=== PATIENT | female | born 2000 | race Caucasian/White ===

== ENCOUNTER 2024-08-06 10:50 | Emergency (ER) | payer BC, SELFPAY ==
--- NOTE | ~2024-08-06 | US_ITS ---
EXAMINATION: US pelvic complete w TV DATE: 08/06/2024 14:19 INDICATION: Pelvic pain and fever TECHNIQUE: Multiple transabdominal and endovaginal sonographic images of the pelvis were obtained. COMPARISON: None. FINDINGS: The uterus measures 7.2 x 4.4 x 3.2 cm. The endometrial complex measures 6 mm in thickness. The righ t ovary measures 2.4 x 1.6 x 1.8 cm. The left ovary measures 3.1 x 1.9 x 1.9 The anechoic cysts/follicles at both ovaries measuring up to 1.6 cm maximal diameter on the left and 1.1 cm in maximal diameter on the right. cm. After flow identified in both ovaries on color Doppler. There is a small amount of anechoic, likely physiologic free fluid in the pelvis. IMPRESSION: 1. Unremarkable pelvic ultrasound with small amount of anechoic likely physiologic free fluid in the cul-de-sac. Reviewed, dictated and finalized at location B. UCTION ARTIST IMPRESSION: 1. Unremarkable pelvic ultrasound with small amount of anechoic likely physiolo gic free fluid in the cul-de-sac.
[2024-08-06 11:12] VITALS: BP 110/70; PULSE 72; RESP 16; TEMP 36.4; O2SAT 98
--- NOTE | 2024-08-06 13:05 | ED.ABDPAIN ---
HPI - Abdominal Pain General Chief Complaint: Abdominal Pain <Zuleika Sánchez PA-C - Last Filed: 08/07/24 15:08> Stated Complaint: i think a cyst on my ovary burst <Zuleika Sánchez PA-C - Last Filed: 08/07/24 15:08> Time Seen by Provider: 08/06/24 13:05 <Zuleika Sánchez PA-C - Last Filed: 08/07/24 15:08> Focused HPI: This is a 24 year old female that presents to the ER for lower abdominal pain. Ongoing since yesterday. Reports feels like really bad period cramp. She has had a ruptured ovarian cyst in the past. Pain feels similar. GENERAL: Well-appearing, well-nourished, and in no acute distress. HEAD: Normocephalic, atraumatic. CHEST: Clear to auscultation. ?No respiratory distress. HEART: Regular rate and rhythm.? NEURO: ?Alert and oriented x3. Patient screened in triage and initial orders placed.? ?Additional care and disposition to be based upon?diagnostic testing and treatment. <Zuleika Sánchez PA-C - Last Filed: 08/07/24 15:08> History of Present Illness HPI narrative: I agree with the above HPI <Aristeo Silva MD - Last Filed: 08/06/24 22:45> Related Data Allergies/Adverse Reactions: Allergies Allergy/AdvReac Type Severity Reaction Status Date / Time No Known Allergies Allergy Verified 08/06/24 10:52 <Zuleika Sánchez PA-C - Last Filed: 08/07/24 15:08> Review of Systems Review of Systems: All systems reviewed & are unremarkable except as noted in HPI and below <Aristeo Silva MD - Last Filed: 08/06/24 22:45> PMFSH Past Medical History Medical History: Medical History (Updated 08/07/24 @ 15:08 by Zuleika Sánchez PA-C) History of migraine <Zuleika Sánchez PA-C - Last Filed: 08/07/24 15:08> Social History Social History: Social History (Updated 08/07/24 @ 15:08 by Zuleika Sánchez PA-C) Substance use: never <Zuleika Sánchez PA-C - Last Filed: 08/07/24 15:08> Exam Narrative: APPEARANCE: Well appearing, no pain, no distress, well-nourished. HEAD: normocephalic, atraumatic. EYES: PERRLA/EOMI, conjunctivae clear. NOSE: Normal no drainage EARS:TMS clear with good light reflex. THROAT: Pharynx clear, no exudate. NECK: Supple. No adenopathy, no masses. RESPIRATORY: Airway patent, respirations nonlabored. Clear to auscultation bilaterally, no rales, rhonchi, wheezing. CARDIOVASCULAR: Regular rate and rhythm without murmurs rubs or gallops. ABDOMINAL: Soft, nonsurgical abdomen with mild tenderness to suprapubic region MUSCULOSKELETAL: Moves all extremities. Strength/ROM intact, No edema, No calf tenderness. NEURO: Alert. Cranial nerves II through XII intact. Good gait. Good coordination SKIN: Warm, dry. Normal Color <Aristeo Silva MD - Last Filed: 08/06/24 22:45> Course Vital Signs Vital signs: Vital Signs Temperature 97.6 F 08/06/24 11:12 Pulse Rate 72 08/06/24 11:12 Respiratory Rate 16 08/06/24 11:12 Blood Pressure 110/70 08/06/24 11:12 Pulse Oximetry 98 08/06/24 11:12 Oxygen Delivery Room Air 08/06/24 11:12 Temperature 97.6 F 08/06/24 11:12 Pulse Rate 72 08/06/24 11:12 Respiratory Rate 16 08/06/24 11:12 Blood Pressure 110/70 08/06/24 11:12 Pulse Oximetry 98 08/06/24 11:12 Oxygen Delivery Room Air 08/06/24 11:12 <Zuleika Sánchez PA-C - Last Filed: 08/07/24 15:08> Vital Signs Temperature 97.6 F 08/06/24 11:12 Pulse Rate 72 08/06/24 11:12 Respiratory Rate 16 08/06/24 11:12 Blood Pressure 110/70 08/06/24 11:12 Pulse Oximetry 98 08/06/24 11:12 Oxygen Delivery Room Air 08/06/24 11:12 Temperature 97.6 F 08/06/24 11:12 Pulse Rate 72 08/06/24 11:12 Respiratory Rate 16 08/06/24 11:12 Blood Pressure 110/70 08/06/24 11:12 Pulse Oximetry 98 08/06/24 11:12 Oxygen Delivery Room Air 08/06/24 11:12 <Aristeo Silva MD - Last Filed: 08/06/24 22:45> MDM - Abdominal Pain MDM Narrative Medical decision making narrative: 24-year-old female presenting to the emergency department for evaluation for lower abdominal pain. Patient reports the pain was very intense last night but has since improved. Patient was afebrile with no leukocytosis and hemoglobin of 13.4. Patient had no significant abnormalities on her CMP UA was negative for infection. test was negative. Ultrasound was negative for torsion. On evaluation patient states she does feel improved. Patient was advised to have close follow-up with her physician and educated on reasons to return to the emergency department. Patient was advised to take Tylenol ibuprofen for pain control. <Aristeo Silva MD - Last Filed: 08/06/24 22:45> Differential Diagnosis Differential diagnosis: Likely abdominal pain, acute appendicitis, calculus of kidney, constipation, diverticulitis, gastroenteritis, pancreatitis, small bowel obstruction and other <Aristeo Silva MD - Last Filed: 08/06/24 22:45> Lab Data Attestation: I reviewed the patient's lab results. <Aristeo Silva MD - Last Filed: 08/06/24 22:45> Result diagrams: 08/06/24 14:08 08/06/24 14:08 <Zuleika Sánchez PA-C - Last Filed: 08/07/24 15:08> Labs: Lab Results 08/06/24 08/06/24 Range/Units 13:16 14:08 WBC 8.0 (4.5-10.0) K/mm3 RBC 4.48 (4.2-5.4) M/mm3 Hgb 13.4 (12.0-15.0) g/dL Hct 42.1 (37.0-47.0) % MCV 94.0 (80-100) fl MCH 29.9 (26-34) pg MCHC 31.8 L (32-36) g/dl RDW 12.5 (11.5-14.5) % Plt Count 254 (150-375) k/mm3 MPV 11.0 H (7.4-10.4) fl Immature Gran % (Auto) 0.3 (0-0.5) % Neut % (Auto) 64.7 (45.5-73.1) % Lymph % (Auto) 25.0 (18.3-44.2) % [place] % (Auto) 8.7 H (2.6-8.5) % Eos % (Auto) 0.8 (0-4.4) % Baso % (Auto) 0.5 (0.2-1.2) % Lymph # (Auto) 1.99 (0.9-3.2) K/mm3 [place] # (Auto) 0.7 H (0.1-0.6) K/mm3 Eos # (Auto) 0.1 (0-0.3) K/mm3 Baso # (Auto) 0.0 (0.0-0.1) K/mm3 Abs Immat Gran (auto) 0.02 (0.00-0.031) K/mm3 Absolute Neuts (auto) 5.2 (1.3-6.7) K/mm3 Absolute Nucleated RBC 0.000 (0.0-0.012) K/mm3 Nucleated RBC % 0.0 (0.0-0.2) % Sodium 142 (137-145) mmol/L Potassium 3.7 (3.4-5.0) mmol/L Chloride 103 (98-107) mmol/L Carbon Dioxide 26 (22-30) mmol/L Anion Gap 13 H (4-12) mmol/L BUN 11 (7-17) mg/dL Creatinine 0.66 L (0.7-1.0) mg/dL Estim Creat Clear Calc 109 ml/min Estimated GFR > 60 (59 - ) Glucose 85 (65-110) mg/dL Calcium 9.0 (8.4-10.2) mg/dL Total Bilirubin 0.7 (0.2-1.3) mg/dL AST 19 (14-36) U/L ALT 12 (6-35) U/L Alkaline Phosphatase 89 (38-126) U/L Total Protein 8.0 (6.3-8.2) g/dL Albumin 4.2 (3.5-5.1) g/dL Lipase 41 (23-300) U/L Urine Color Yellow (Yellow) Urine Appearance Clear (Clear) Urine pH 5.5 (5.0-9.0) Ur Specific [place] 1.025 (1.001-1.035) Urine Protein Negative (Negative) mg/dL Urine Glucose (UA) Negative (Negative) mg/dL Urine Ketones Trace H (Negative) mg/dL Ur Blood (Man) 1+ H (Negative) Urine Nitrate Negative (Negative) Urine Bilirubin Negative (Negative) Urine Urobilinogen 0.2 (<2.0) mg/dL Leukocyte Esterase Rfl Negative (Negative) ABDULKADIR/UL Urine RBC 11-20 H (0-2) /hpf Urine WBC 0-5 (0-3) /hpf Ur Squamous Epith Cells None seen (Few) /hpf Urine Bacteria None seen /hpf Urine Casts 0-2 POC Urine HCG, Qual Negative (Negative) <Zuleika Sánchez PA-C - Last Filed: 08/07/24 15:08> Lab Results 08/06/24 08/06/24 Range/Units 13:16 14:08 WBC 8.0 (4.5-10.0) K/mm3 RBC 4.48 (4.2-5.4) M/mm3 Hgb 13.4 (12.0-15.0) g/dL Hct 42.1 (37.0-47.0) % MCV 94.0 (80-100) fl MCH 29.9 (26-34) pg MCHC 31.8 L (32-36) g/dl RDW 12.5 (11.5-14.5) % Plt Count 254 (150-375) k/mm3 MPV 11.0 H (7.4-10.4) fl Immature Gran % (Auto) 0.3 (0-0.5) % Neut % (Auto) 64.7 (45.5-73.1) % Lymph % (Auto) 25.0 (18.3-44.2) % [place] % (Auto) 8.7 H (2.6-8.5) % Eos % (Auto) 0.8 (0-4.4) % Baso % (Auto) 0.5 (0.2-1.2) % Lymph # (Auto) 1.99 (0.9-3.2) K/mm3 [place] # (Auto) 0.7 H (0.1-0.6) K/mm3 Eos # (Auto) 0.1 (0-0.3) K/mm3 Baso # (Auto) 0.0 (0.0-0.1) K/mm3 Abs Immat Gran (auto) 0.02 (0.00-0.031) K/mm3 Absolute Neuts (auto) 5.2 (1.3-6.7) K/mm3 Absolute Nucleated RBC 0.000 (0.0-0.012) K/mm3 Nucleated RBC % 0.0 (0.0-0.2) % Sodium 142 (137-145) mmol/L Potassium 3.7 (3.4-5.0) mmol/L Chloride 103 (98-107) mmol/L Carbon Dioxide 26 (22-30) mmol/L Anion Gap 13 H (4-12) mmol/L BUN 11 (7-17) mg/dL Creatinine 0.66 L (0.7-1.0) mg/dL Estim Creat Clear Calc 109 ml/min Estimated GFR > 60 (59 - ) Glucose 85 (65-110) mg/dL Calcium 9.0 (8.4-10.2) mg/dL Total Bilirubin 0.7 (0.2-1.3) mg/dL AST 19 (14-36) U/L ALT 12 (6-35) U/L Alkaline Phosphatase 89 (38-126) U/L Total Protein 8.0 (6.3-8.2) g/dL Albumin 4.2 (3.5-5.1) g/dL Lipase 41 (23-300) U/L Urine Color Yellow (Yellow) Urine Appearance Clear (Clear) Urine pH 5.5 (5.0-9.0) Ur Specific [place] 1.025 (1.001-1.035) Urine Protein Negative (Negative) mg/dL Urine Glucose (UA) Negative (Negative) mg/dL Urine Ketones Trace H (Negative) mg/dL Ur Blood (Man) 1+ H (Negative) Urine Nitrate Negative (Negative) Urine Bilirubin Negative (Negative) Urine Urobilinogen 0.2 (<2.0) mg/dL Leukocyte Esterase Rfl Negative (Negative) ABDULKADIR/UL Urine RBC 11-20 H (0-2) /hpf Urine WBC 0-5 (0-3) /hpf Ur Squamous Epith Cells None seen (Few) /hpf Urine Bacteria None seen /hpf Urine Casts 0-2 POC Urine HCG, Qual Negative (Negative) <Aristeo Silva MD - Last Filed: 08/06/24 22:45> Imaging Data Radiologist's impression: ITS Impressions Pelvic/Transvag US 08/06/24 14:50 IMPRESSION: 1. Unremarkable pelvic ultrasound with small amount of anechoic likely physiologic free fluid in the cul-de-sac. <Zuleika Sánchez PA-C - Last Filed: 08/07/24 15:08> ITS Impressions Pelvic/Transvag US 08/06/24 14:50 IMPRESSION: 1. Unremarkable pelvic ultrasound with small amount of anechoic likely physiologic free fluid in the cul-de-sac. <Aristeo Silva MD - Last Filed: 08/06/24 22:45> Critical Care Time Critical Care Time Critical Care Time: No <Zuleika Sánchez PA-C - Last Filed: 08/07/24 15:08> Discharge Plan Discharge Clinical Impression: Lower abdominal pain <Zuleika Sánchez PA-C - Last Filed: 08/07/24 15:08> Patient Disposition: Home, Self-Care <Zuleika Sánchez PA-C - Last Filed: 08/07/24 15:08> Condition: Stable <Zuleika Sánchez PA-C - Last Filed: 08/07/24 15:08> Instructions: Antibiotic Form, Ovarian Cyst (ED), Abdominal Pain (ED) <Zuleika Sánchez PA-C - Last Filed: 08/07/24 15:08> Additional Instructions: Tylenol and ibuprofen for pain control. Have close follow-up with your primary care physician and with [facility]. If you have any worsening symptoms then please call or return to the emergency department. <Zuleika Sánchez PA-C - Last Filed: 08/07/24 15:08> Patient Language: Romanian <Zuleika Sánchez PA-C - Last Filed: 08/07/24 15:08> Follow-up/Referrals: PHYSICIAN NOT ON STAFF,NONSTAFF [Non-Staff] - <Zuleika Sánchez PA-C - Last Filed: 08/07/24 15:08>
[2024-08-06 13:18] LABS: BEDSIDEPREGUCG Negative (Negative)
[2024-08-06 14:34] LABS: Basophils Percent Auto 0.5 % (0.2-1.2); Eosinophils Absolute Auto 0.1 K/mm3 (0-0.3); Eosinophils Percent Auto 0.8 % (0-4.4); Hematocrit 42.1 % (37.0-47.0); Hemoglobin 13.4 g/dL (12.0-15.0); Immature Granulocyte Absolute 0.02 K/mm3 (0.00-0.031); Immature Granulocyte Percent A 0.3 % (0-0.5); Lymphocytes Absolute Auto 1.99 K/mm3 (0.9-3.2); Mean Corpuscular HGB Conc 31.8 g/dl (32-36); Mean Corpuscular Hemoglobin 29.9 pg (26-34); Monocytes Absolute Auto 0.7 K/mm3 (0.1-0.6); Monocytes Percent Auto 8.7 % (2.6-8.5); Neutrophils Absolute Auto 5.2 K/mm3 (1.3-6.7); Neutrophils Percent Auto 64.7 % (45.5-73.1); Platelet Count Result 254 k/mm3 (150-375); Red Blood Count 4.48 M/mm3 (4.2-5.4); Red Cell Distribution Width 12.5 % (11.5-14.5)
[2024-08-06 14:40] LABS: Add Urine Microscopic? YES; Appearance Urine Clear (Clear); Bacteria Urine None Seen /hpf; Bilirubin Urine Negative (Negative); Blood Urine 1+ (Negative); Color Urine Yellow (Yellow); Glucose Urine UA Negative (Negative); Ketones Urine Trace mg/dL (Negative); Leukocyte Esterase Ur Negative LEU/UL (Negative); Nitrate Urine Negative (Negative); Non Pathogenic Casts 0-2; Protein Urine Negative (Negative); Specific Grav Ur 1.025 (1.001-1.035); Squamous Epithelial Cell Urine None Seen /hpf (Few); Urobilinogen Urine 0.2 mg/dL (<2.0); WBC Urine 0-5 /hpf (0-3); pH Urine 5.5 (5.0-9.0)
[2024-08-06 14:58] LABS: Alanine Aminotransferase 12 U/L (6-35); Albumin Level 4.2 g/dL (3.5-5.1); Alkaline Phosphatase 89 U/L (38-126); Anion Gap 13 mmol/L (4-12); Aspartate Amino Transferase 19 U/L (14-36); Bilirubin,Total 0.7 mg/dL (0.2-1.3); Blood Urea Nitrogen 11 mg/dL (7-17); Carbon Dioxide 26 mmol/L (22-30); Chloride 103 mmol/L (98-107); Estimated CRCL calculation 109 ml/min; Estimated Glomerular Filt Rate > 60; Glucose 85 mg/dL (65-110); Lipase 41 U/L (23-300); Potassium 3.7 mmol/L (3.4-5.0); Sodium 142 mmol/L (137-145)
--- OUTSIDE RECORDS SUMMARY | 2024-08-06 16:46 | XMS_ITS | Clinical Summary ---
Author Organization [facility] Address [address] [place] [address] Care Team Providers Care Insect Control Inspector Name Role Phone Mary London NP Primary Care Provider [phone] Allergies No known active allergies Medications topiramate (TOPAMAX) 25 mg tablet Take 1 tablet (25 mg total) by mouth nightly 30 tablet 1 5 Active rizatriptan (MAXALT) 10 mg tabletIndications:M igraine Take 1 tablet (10 mg total) by mouth once as needed for migraine May repeat in 2 hours if unresolved. Do not exceed 30 mg in 24 hours. 15 tablet 1 5 07/22/19 26 Active ondansetron ODT (ZOFRAN-ODT) 4 mg disintegrating tablet Take 1 tablet (4 mg total) by mouth every 8 (eight) hours as needed for nausea or vomiting 20 tablet 1 5 Active Active Problems Problem Noted Date Diagnosed Date New daily persistent headache 07/22/2024 Chronic migraine without aur a with status migrainosus, not intractable 07/22/2024 Assessment & Plan (07/22/2024 8:39 AM LEAD RUBY ON RAILS DEVELOPER): Topamax 25 mg at bedtime. I gave her Maxalt p.r.n. for the bad migraine days along with Zofran for nausea and vomiting. I discussed the reasoning behind both. Will have her follow-up in 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 Patient does state that she recalls as far back as when she was 17 and feeling it. She thinks maybe it is slightly larger. We are going to get a CT of her head Nonspecific abdominal pain 08/22/2023 Assessment & Plan (08/22/2023 11:03 AM LEAD RUBY ON RAILS DEVELOPER): Differential includes constipation, gas, less likely UTI, , kidney related. Will obtain labs. Discussed if pain becomes more consistent, worsens, is accompanied by nausea/ vomiting, bowel change, then we would pursue CT scan. Annual physical exam 08/22/2023 Assessment & Plan (08/31/2023 5:35 PM LEAD RUBY ON RAILS DEVELOPER): -Recommended: Healthy, prudent diet. Avoiding junk food/fast food. -30 minutes of exercise most days of the week. Increase to 45 minutes for weight loss. -Mammogram every 1 year, starting at age 40; regular self breast & skin examinations (1 week after cycle begins) -Regular gynecologic examinations with pelvic exam & PAP smear every 3-5 years if you have not had a hysterectomy (does not have a brazer electronic), -Periodic blood pressure monitoring, & bone-density testing (starting at age 65 in average-risk person) -Influenza vaccine every year recommended influenza yearly Influenza (if indicated) -F/u in 1 year for Annual PE or sooner if needed -Labs as ordered -referral to Gynecology Encounters Date Type Department Care Team Description 08/06/2024 Nurse Triage [facility] Primary Care at [address] [phone] Mary London NP 08/03/2024 6:13 AM LEAD RUBY ON RAILS DEVELOPER - 08/03/2024 11:59 PM LEAD RUBY ON RAILS DEVELOPER Hospital Encounter [facility] [address] [place] [address] Anomaly of skull Discharge Disposition: Discharge to home or self care 07/22/2024 8:32 AM LEAD RUBY ON RAILS DEVELOPER - 07/22/2024 11:59 PM LEAD RUBY ON RAILS DEVELOPER Hospital Encounter [address] [address] New daily persistent headache Discharge Disposition: Discharge to home or self care 07/22/2024 8:30 AM LEAD RUBY ON RAILS DEVELOPER Lab [facility] Outpatient Lab at [address] [address] Annual physical exam (Primary Dx) 07/22/2024 8:00 AM LEAD RUBY ON RAILS DEVELOPER Office Visit [facility] Primary Care at [address] [address] Mary London NP Chronic migraine without aura with status migrainosus, not intractable (Primary Dx); New daily persistent headache; Anomaly of skull from Last 3 Months Immunizations Name Administration Dates Next Due DTaP 02/19/2005, 1,1999,1999, 1999 HPV, Quadrivalent 02/17/2014 Hep A, Pediatric 02/17/2014 Hep B / HiB 05/27/2000,1999,1999 IPV 02/19/2005,04/10/2001,1999 ,1999 Influenza, Unspecified 08/22/2023(Deferr ed: Patient Refused),07/07/2022(Deferred: Patient Refused) MMR 06/22/2003,08/26/2000 Pneumococcal Conjugate 7-Valent 08/26/2000,05/27 Varicella 05/27/2000 Family History Medical History Relation Name Comments No Known Problems Brother 1 No Known Problems Brother 2 No Known Problems Father Hypertension Mother Thyroid disease Mother Relation Name Status Comments Brother 1 Alive Brother 2 Alive Father Alive Mother Alive Sister Alive Social History Tobacco Use Types Packs/Day Years Used Date Smoking Tobacco: Never Smokeless Tobacco: Never Tobacco Cessation:Counseling Given: Not Answered Alcohol Use Standard Drinks/Week Comments Not Currently 0 (1 standard drink = 0.6 oz pur e alcohol) AUDIT-C Answer Date Recorded Q1: How often do you have a drink containing alc ohol? Never 11/20/2023 Average Number of Drinks Not on file 024 Frequency of Binge Drinking Not on file 11/04 PHQ-2 Answer Date Recorded PHQ-2 Total Score (If total score is 3 or more points, staff should administer the PHQ-9) 0 11/20/2023 Comments No Sex and Gender Information Value Date Recorded Sex Assigned at Not on file Legal Sex Female 7:08 PM CDT Gender Identity Female 08/29/2023 11:43 PM LEAD RUBY ON RAILS DEVELOPER Sexual Orientation Not on file Obstetrics History Para Term AB IAB SAB Ectopic Multiple Livin g Live Births 0 0 0 0 0 0 0 0 0 0 0 Last Filed Vital Signs Vital Sign Reading Time Taken Comments Blood Pressure 122/70 07/22/2024 7:54 AM LEAD RUBY ON RAILS DEVELOPER Pulse 62 07/22/2024 7:54 AM LEAD RUBY ON RAILS DEVELOPER Temperature 36.8 ??C (98.3 ??F) 07/22/2024 7:54 AM CS T Respiratory Rate 16 07/22/2024 7:54 AM LEAD RUBY ON RAILS DEVELOPER Oxygen Saturation 99% 07/22/2024 7:54 AM LEAD RUBY ON RAILS DEVELOPER Inhaled Oxygen Concentration - - Weight 75.8 kg (167 lb) 07/22/2024 7:54 AM LEAD RUBY ON RAILS DEVELOPER Height 160 cm (5' 3 ) 07/22/2024 7:54 AM LEAD RUBY ON RAILS DEVELOPER Body Mass Index 29.58 07/22/2024 7:54 AM LEAD RUBY ON RAILS DEVELOPER Plan of Treatment Health Maintenance Due Date Last Done Comments Hepatitis C Screening 1999 Varicella Vaccines (2 of 2 - 2-dose childhood series) 2003 05/27/2000 DTaP/Tdap/Td Vaccine (6 - Tdap) 2010 02/19/2005, 04/10/2001, 1999, Additional history exists HPV Vaccines (2 - 2-dose series) 08/20/2014 02/17/2014 Cervical Cancer Screening 11/19/2024 11/20/2023 Depression Screening 11/19/2024 11/20/2023, 08/22/19 24 Regular Well Visit/Exam 18-64 11/19/2024 11/20/2023, 08/22/2023 Influenza Vaccine (#1) 2025 Postp oned from 03/07/2024 (Patient declined, but will receive in the future) Pneumococcal vaccine <65 Completed 08/26/2000, 05/08 Procedures Procedure Name Priority Date/Time Associated Diagnosis Comments CT HEAD WO CONTRAST Schedule Routine, Read Routine (OP Routine) 08/03/2024 6:42 AM LEAD RUBY ON RAILS DEVELOPER Anomaly of skull EGFR Routine 07/22/2024 8:32 AM LEAD RUBY ON RAILS DEVELOPER New daily persistent headache DIFFERENTIAL AUTO Routine 07/22/2024 8:3 2 AM LEAD RUBY ON RAILS DEVELOPER New daily persistent headache THYROID FUNCTION CASCADE Routine 07/22/2024 8:32 AM LEAD RUBY ON RAILS DEVELOPER New daily persistent headache CBC WITH AUTO DIFFERENTIAL Routine 07/22/2024 8:32 AM LEAD RUBY ON RAILS DEVELOPER New daily persistent headache COMPREHENSIVE METABOLIC PANEL Routine 07/22/2024 8:32 AM LEAD RUBY ON RAILS DEVELOPER New daily persistent headache PAP, REFLEX HPV Routine 11/20/2023 3:25 PM CDT Encounter for gynecological examination with Papanicolaou smear of cervix from Last 3 Months or Most Recently Relevant to Health Maintenance Results * CT Head WO Contrast (08/03/2024 6:42 AM LEAD RUBY ON RAILS DEVELOPER) Anatomical Region Laterality Modality Head and Neck N/A Computed Tomogra phy 08/03/2024 9:00 AM LEAD RUBY ON RAILS DEVELOPER Narrative 08/03/2024 9:04 AM LEAD RUBY ON RAILS DEVELOPER EXAM DESCRIPTION: CT HEAD WO CONTRAST REASON FOR STUDY: Chronic headaches, dizziness, and photophobia. ??No provided focal neurologic deficits. ??No provided history of trauma or inciting and/or aggravating events. ??No provided past medical or surgical history. TECHNIQUE: Axial images acquired through the brain without intravenous contrast. ??Images stored on PACS. ?? Automated exposure control was used as a dose optimization technique for this examination. COMPARISON: No prior relevant imaging available at time of interpretation. FINDINGS: BRAIN: ?? No acute intra-axial hemorrhage. ??No edema, mass effect, midline shift, or herniation. ?Normal white matter. ? No evidence of acute territorial ischemia/infarct. ?? EXTRA-AXIAL SPACES: ?? No extra-axial fluid collection. ??No unenhanced CT evidence of extra-axial mass. ?? CALVARIUM: ?? No acute calvarial fracture. ??No suspicious osseous lesions, noting ??slight type 1 (smooth type) occipital spur. SINUSES/MASTOIDS: ?? Visualized paranasal sinuses clear. ??Mastoid air cells well-developed and left mastoid air cells well aerated with slight scattered fluid in the dependent predominant left mastoid air cells. ??Debris in the lwdx-drbolqa-maew-right EACs. ORBITS: No acute abnormality. ??Ocular lenses and globes normal in conformation and position. ?? OTHER: ?? No other significant abnormality. IMPRESSION: No acute intracranial process. THIS IS AN ELECTRONICALLY VERIFIED FINAL REPORT 08/03/2024 9:04 AM - Electronically signed by ??Nicolas Mahan M.D. SHANTE: SHANTE D: ??08/03/2024 9:04 AM T: ??08/03/2024 9:04 AM Report ID: [id number] Reading Location: ??[id number] Procedure Note Nicolas Mahan MD - 08/03/2024 EXAM DESCRIPTION: CT HEAD WO CONTRAST REASON FOR STUDY: Chronic headaches, dizziness, and photophobia. Noprovided focal neurologic deficits. No provided history of trauma or incitingand/or aggravating events. No provided past medical or surgical history. TECHNIQUE: Axial images acquired through the brain without intravenous contrast. Images stored on PACS. Automated exposure control was used asa dose optimization technique for this examination. COMPARISON: No prior relevant imaging available at time of interpretation. FINDINGS: BRAIN: No acute intra-axial hemorrhage. No edema, masseffect, midline shift, or herniation. Normal white matter. No evidence ofacute territorial ischemia/infarct. EXTRA-AXIAL SPACES: No extra-axial fluid collection. No unenhanced CT evidence of extra-axial mass. CALVARIUM: No acute calvarial fracture. No suspicious osseous lesions, noting slight type 1 (smooth type) occipital spur. SINUSES/MASTOIDS: Visualized paranasal sinuses clear. Mastoid air cells well-developed and left mastoid air cells well aerated with slightscattered fluid in the dependent predominant left mastoid air cells. Debris in the rylg-skybrci-auex-right EACs. ORBITS: No acute abnormality. Ocular lenses and globes normal inconformation and position. OTHER: No other significant abnormality. IMPRESSION: No acute intracranial process. THIS IS AN ELECTRONICALLY VERIFIED FINAL REPORT 08/03/2024 9:04 AM - Electronically signed by Nicolas Mahan M.D. SHANTE: SHANTE Report ID: [id number] Reading Location: [place] [address] Mary London NP IMG CT PROCEDURES Final Result * eGFR (07/22/2024 8:32 AM LEAD RUBY ON RAILS DEVELOPER) eGFR >90 >=60 mL/min/1. 73 m2 Comment: Interpretive Data Reference Interval Normal ?>/= 90 mL/min/1.73m2 Mildly decreased* ? 60 - 89 mL/min/1.73m2 Mildly to moderately decreased ?45 - 59 mL/min/1.73m2 Moderately to severely decreased ??30 - 44 mL/min/1.73m2 Severely decreased ?15 - 29 mL/min/1.73m2 Kidney Failure ?< 15 ??mL/min/1.73m2 *Relative to young adult level Estimated glomerular filtration rate is determined by the 2020 CKD-EPI equation recommended by the National Kidney Foundation (A Unifying Approach to GFR Estimation: Recommendations of the NKF-ASK Task Force on Reassessing the Inclusion of Race in Diagnosing Kidney Disease, JASN 2020). The CKD-EPI equation should not be used for patients with unstable renal function and has not been validated in children and those over 70. Current interpretive data was last reviewed 2021. Blood 07/22/2024 8:32 AM LEAD RUBY ON RAILS DEVELOPER 07/22/2024 5:05 PM LEAD RUBY ON RAILS DEVELOPER Mary London NP LAB BLOOD ORDERABLES Final Resul t Performing Organization Address City/State/ZIP Co sd Phone Number [facility] [id number] [place] [address] * Differential, auto (07/22/2024 8:32 AM LEAD RUBY ON RAILS DEVELOPER) Neutrophil abs 4.0 1.5 - 6.5 K/cumm Imm gran abs 0.0 0.0 - 0.1 K/cumm [facility] Lymphocyte abs 1.8 0.8 - 3.3 K/cumm [facility] Monocyte abs 0.6 0.2 - 0.8 K/cumm [facility] Eosinophil abs 0.1 0.0 - 0.5 K/cumm [facility] Basophil abs 0.0 0.0 - 0.1 K/cumm [facility] Neutrophil pct 61.8 % [facility] Comment: Interpretive Data Percent cell count reference ranges are not reported, since discordance with absolute values may lead to misinterpretation of CBC data. Current Interpretive Data was last revised on 2017. Imm gran pct 0.2 % [facility] Comment: Interpretive Data Percent cell count reference ranges are not reported, since discordance with absolute values may lead to misinterpretation of CBC data. Current Interpretive Data was last revised on 2017. Lymphocyte pct 27.9 % [facility] Comment: Interpretive Data Percent cell count reference ranges are not reported, since discordance with absolute values may lead to misinterpretation of CBC data. Current Interpretive Data was last revised on 2017. Monocyte pct 8.6 % [facility] Comment: Interpretive Data Percent cell count reference ranges are not reported, since discordance with absolute values may lead to misinterpretation of CBC data. Current Interpretive Data was last revised on 2017. Eosinophil pct 0.9 % [facility] Comment: Interpretive Data Percent cell count reference ranges are not reported, since discordance with absolute values may lead to misinterpretation of CBC data. Current Interpretive Data was last revised on 2017. Basophil pct 0.6 % [facility] Comment: Interpretive Data Percent cell count reference ranges are not reported, since discordance with absolute values may lead to misinterpretation of CBC data. Current Interpretive Data was last revised on 2017. Blood 07/22/2024 8:32 AM LEAD RUBY ON RAILS DEVELOPER 07/22/2024 4:46 PM LEAD RUBY ON RAILS DEVELOPER Mary London NP LAB BLOOD ORDERABLES Final Resul t [facility] [id number] [facility] [place] [address] * Thyroid Function [place] (07/22/2024 8:32 AM LEAD RUBY ON RAILS DEVELOPER) TSH 2.12 0.30 - 4.20 mcIUnit/mL Blood 07/22/2024 8:32 AM LEAD RUBY ON RAILS DEVELOPER 07/22/2024 4:46 PM LEAD RUBY ON RAILS DEVELOPER Mary London NP LAB BLOOD ORDERABLES Final Resul t Performing Organization Address [facility] Co de Phone Number POOJA [place]ID [phone] [facility] [place] [address] * (ABNORMAL) CBC with auto differential (07/22/2024 8:32 AM LEAD RUBY ON RAILS DEVELOPER) Pathologist [facility] WBC 6.4 3.8 - 9.9 K/cumm Hgb 13.5 11.9 - 15.5 g/dL [facility] Hct 43.5 35.6 - 45.5 % [facility] Plt 244 150 - 400 K/cumm [facility] MPV 11.9 9.1 - 12.3 fL [facility] RBC 4.49 3.90 - 5.20 M/cumm [facility] MCV 96.9(H) 81.3 - 96.4 fL [facility] MCH 30.1 27.1 - 33.3 pg [facility] MCHC 31.0(L) 32.3 - 35.7 g/dL [facility] RDW CV 12.9 11.1 - 14.9 % [facility] RDW SD 46.5 35.7 - 48.1 fL [facility] NRBC abs 0.00 0.00 - 0.01 K/cumm [facility] Blood 07/22/2024 8:32 AM LEAD RUBY ON RAILS DEVELOPER 07/22/2024 4:46 PM LEAD RUBY ON RAILS DEVELOPER Mary London NP LAB BLOOD ORDERABLES Final Resul t Performing Organization Address City/[facility]/ZIP Co de Phone Number POOJA DAVID [id number] [address] Department of [employer] [place], [place] [id number] * Comprehensive metabolic panel (07/22/2024 8:32 AM LEAD RUBY ON RAILS DEVELOPER) Sodium 140 135 - 145 mmol/L Potassium, pl 4.5 3.3 - 4.9 mmol/L [facility] Chloride 105 97 - 110 mmol/L [facility] CO2 24 22 - 32 mmol/L [facility] Anion gap 11 2 - 15 mmol/L [facility] BUN 10 6 - 25 mg/dL [facility] Creatinine 0.70 0.60 - 1.10 mg/dL [facility] Glucose 86 70 - 199 mg/dL [facility] Comment: Interpretive Data Fasting glucose >/= 126 mg/dl is diagnostic for diabetes. ?? Fasting is defined as no caloric intake for at least 8 hours. Fasting glucose between 100 mg/dl to 125 mg/dl is diagnostic of prediabetes. In a patient with classic symptoms of hyperglycemia or hyperglycemic crisis, a random glucose >/= 200 mg/dl is diagnostic for diabetes. In the absence of unequivocal hyperglycemia, results should be confirmed by repeat testing. The classification and Diagnosis of Diabetes Diabetes Care 2021; 46: S19-S40. Current interpretive data was last revised 2022. Calcium 9.0 8.5 - 10.3 mg/dL [facility] Bilirubin, total 0.3 0.1 - 1.2 mg/dL [facility] Protein, pl 7.1 6.5 - 8.5 g/dL [facility] Albumin 4.5 3.5 - 5.0 g/dL [facility] Alk phos 88 40 - 130 Units/L [facility] ALT 11 7 - 45 Units/L [facility] AST 19 10 - 45 Units/L [facility] Blood 07/22/2024 8:32 AM LEAD RUBY ON RAILS DEVELOPER 07/22/2024 4:46 PM LEAD RUBY ON RAILS DEVELOPER Mary London NP LAB BLOOD ORDERABLES Final Resul t Performing Organization Address City/[facility]/ZIP Co de Phone Number POOJA [facility]ID [address] [address] Department [place] [address] * Pap, reflex HPV (11/20/2023 3:25 PM CDT) CLINICAL INFORMATION: Rain FinneyMarylou De La Cruz Comment:None given LMP Rain FinneyMarylou De La Cruz Comment:[id number] Previous Pap Rain FinneyaMrylou De La Cruz Comment:None given Prev. Bx Rain FinneySriramSania yaya De La [place] Comment:None given SOURCE: Rain RegMarylou De La Cruz Comment:Cervix, Endocervix Pap, specimen adequacy Rain RegMarylou De La Cruz Comment: Satisfactory for evaluation. Endocervical/transformation zone component present. HPV interp Rain FinneyMarylou De La Cruz Comment: Cytology Results: Negative for intraepithelial lesion or malignancy. COMMENTS Rain FinneyMarylou De La Cruz Comment: This Pap test has been evaluated with computer assisted technology. Field Reporter [facility] st FinneyMarylou De La Cruz Comment: CAK, CT(ASCP) CT Screening Location: [place] [address] [place] [address] Comment Rain RegMarylou De La Cruz Comment: EXPLANATORY NOTE: The Pap is a screening test for cervical cancer. It is not a diagnostic test and is subject to false negative and false positive results. It is most reliable when a satisfactory sample, regularly obtained, is submitted with relevant clinical findings and history, and when the Pap result is evaluated along with historic and current clinical information. Thin prep 11/20/2023 3:25 PM CDT 11/21/2023 3:44 AM CDT Isabel Murrieta NP LAB CYTOLOGY ORDERABLES Final Re sult [facility] [employer] [address] [place] [address] from Last 3 Months or Most Recently Relevant to Health Maintenance Insurance [facility] Care Teams Insect Control Inspector Relationship Specialty Start Date End Date Mary London NP PCP - General Family Medicine 08/22/23
--- OUTSIDE RECORDS SUMMARY | 2024-08-06 16:46 | XMS_ITS | Referral Summary ---
Author Organization [facility] Address [address] [place] [address] Care Team Providers Care Environmental Health Officer Name Role Phone Mary London NP Primary Care Provider [phone] Encounters Date Type Department Care Team Description 08/06/2024 Nurse Triage [facility] Primary Care at [address] [address] Mary London NP 08/03/2024 6:13 AM FISHER SPONGE HOOKING - 08/03/2024 11:59 PM [employer]ER SPONGE HOOKING Hospital Encounter [address] [address] Anomaly of skull Discharge Disposition: Discharge to home or self care 07/22/2024 8:32 AM FISHER SPONGE HOOKING - 07/22/2024 11:59 PM [employer]ER SPONGE HOOKING Hospital Encounter [address] [address] New daily persistent headache Discharge Disposition: Discharge to home or self care 07/22/2024 8:30 AM FISHER SPONGE HOOKING Lab [facility] Outpatient Lab at [address] [address] Annual physical exam (Primary Dx) 07/22/2024 8:00 AM FISHER SPONGE HOOKING Office Visit [facility] Primary Care at [address] [address] Mary London NP Chronic migraine without aura with status migrainosus, not intractable (Primary Dx); New daily persistent headache; Anomaly of skull from Last 3 Months Allergies No known active allergies Medications topiramate [...] 07/22/2024 Assessment & Plan (07/22/2024 8:39 AM FISHER SPONGE HOOKING): Topamax 25 mg at bedtime. I gave her Maxalt p.r.n. for the bad migraine days along with Zofran for nausea and vomiting. I discussed the reasoning behind both. Will have her follow-up in [address] as ordered for new daily headache Anomaly of skull 07/22/2024 Assessment & Plan (07/22/2024 8:38 AM FISHER SPONGE HOOKING): Her mother does not recall that she has had this before. Patient does state that she recalls as far back as when she was 17 and feeling it. She thinks maybe it is slightly larger. We are going to get a CT of her head Nonspecific abdominal pain 08/22/2023 Assessment & Plan (08/22/2023 11:03 AM FISHER SPONGE HOOKING): Differential includes constipation, gas, less likely UTI, , kidney related. Will obtain labs. Discussed if pain becomes more consistent, worsens, is accompanied by nausea/ vomiting, bowel change, then we would pursue CT scan. Annual physical exam 08/22/2023 Assessment & Plan (08/31/2023 5:35 PM FISHER SPONGE HOOKING): -Recommended: Healthy, prudent diet. Avoiding junk food/fast [...] had a hysterectomy (does not have a roof fixer), -Periodic blood pressure monitoring, & bone-density testing (starting at age 65 in average-risk person) -Influenza vaccine every year recommended influenza yearly Influenza (if indicated) -F/u in 1 year for Annual PE or sooner if needed -Labs as ordered -referral to Gynecology Immunizations Name Administration Dates Next Due DTaP 02/19/2005, 1,1999,1999, 1999 HPV, Quadrivalent 02/17/2014 Hep A, Pediatric 02/17/2014 Hep B / HiB 05/27/2000,1999,1999 IPV 02/19/2005,04/10/2001,1999 ,1999 Influenza, Unspecified 08/22/2023(Deferr ed: Patient Refused),07/07/2022(Deferred: Patient Refused) MMR 06/22/2003,08/26/2000 Pneumococcal Conjugate 7-Valent 08/26/2000,05/27 Varicella 05/27/2000 Social History Tobacco Use Types Packs/Day Years [...] CDT Gender Identity Female 08/29/2023 11:43 PM FISHER SPONGE HOOKING Sexual Orientation Not on file Last Filed Vital Signs Vital Sign Reading Time Taken Comments Blood Pressure 122/70 07/22/2024 7:54 AM FISHER SPONGE HOOKING Pulse 62 07/22/2024 7:54 AM FISHER SPONGE HOOKING Temperature 36.8 ??C (98.3 ??F) 07/22/2024 7:54 AM CS T Respiratory Rate 16 07/22/2024 7:54 AM FISHER SPONGE HOOKING Oxygen Saturation 99% 07/22/2024 7:54 AM FISHER SPONGE HOOKING Inhaled Oxygen Concentration - - Weight 75.8 kg (167 lb) 07/22/2024 7:54 AM FISHER SPONGE HOOKING Height 160 cm (5' 3 ) 07/22/2024 7:54 AM FISHER SPONGE HOOKING Body Mass Index 29.58 07/22/2024 7:54 AM FISHER SPONGE HOOKING Plan of Treatment Not on file Procedures Procedure Name Priority Date/Time Associated Diagnosis Comments CT HEAD WO CONTRAST Schedule Routine, Read Routine (OP Routine) 08/03/2024 6:42 AM FISHER SPONGE HOOKING Anomaly of skull EGFR Routine 07/22/2024 8:32 AM [employer]ER SPONGE HOOKING New daily persistent headache DIFFERENTIAL AUTO Routine 07/22/2024 8:3 2 AM [employer]ER SPONGE HOOKING New daily persistent headache THYROID FUNCTION CASCADE Routine 07/22/2024 8:32 AM [employer]ER SPONGE HOOKING New daily persistent headache CBC WITH AUTO DIFFERENTIAL Routine 07/22/2024 8:32 AM [employer]ER SPONGE HOOKING New daily persistent headache COMPREHENSIVE METABOLIC PANEL Routine 07/22/2024 8:32 AM [employer]ER SPONGE HOOKING New daily persistent headache PAP, REFLEX HPV Routine 11/20/2023 3:25 PM CDT Encounter for gynecological examination with Papanicolaou smear of cervix from Last 3 Months or Most Recently Relevant to Health Maintenance Results * CT Head WO Contrast (08/03/2024 6:42 AM FISHER SPONGE HOOKING) Anatomical Region Laterality Modality Head and Neck N/A Computed Tomogra phy 08/03/2024 9:00 AM FISHER SPONGE HOOKING Narrative 08/03/2024 9:04 AM FISHER SPONGE HOOKING EXAM DESCRIPTION: CT HEAD WO CONTRAST REASON [...] left mastoid air cells. ??Debris in the tedy-qdoqlbg-qyqf-right EACs. ORBITS: No acute abnormality. ??Ocular lenses and globes normal in conformation and position. ?? OTHER: ?? No other significant abnormality. IMPRESSION: No acute intracranial process. THIS IS AN ELECTRONICALLY VERIFIED FINAL REPORT 08/03/2024 9:04 AM - Electronically signed by ??Nicolas Mahan M.D. SHANTE: SHANTE D: ??08/03/2024 9:04 AM T: ??08/03/2024 9:04 AM Report ID: [id number] Reading Location: ??[id number] Procedure Note Nicolas Mahan MD - 08/03/2024 [...] left mastoid air cells. Debris in the qbyc-htocpxf-dfzx-right EACs. ORBITS: No acute abnormality. Ocular lenses and globes normal inconformation and position. OTHER: No other significant abnormality. IMPRESSION: No acute intracranial process. THIS IS AN ELECTRONICALLY VERIFIED FINAL REPORT 08/03/2024 9:04 AM - Electronically signed by Nicolas Mahan M.D. SHANTE: SHANTE Report ID: [id number] Reading Location: [place] [address] Mary London NP IM CT PROCEDURES Final Result * eGFR (07/22/2024 8:32 AM FISHER SPONGE HOOKING) eGFR >90 >=60 mL/min/1. 73 m2 Comment: [...] of Race in Diagnosing Kidney Disease, JASN 202). The CKD-EPI equation should not be used for patients with unstable renal function and has not been validated in children and those over 70. Current interpretive data was last reviewed 2021. Blood 07/22/2024 8:32 AM [employer]ER SPONGE HOOKING 07/22/2024 5:05 PM [employer] SPONGE HOOKING Mary London NP LAB BLOOD ORDERABLES Final Resul t [facility] [address] Department [place] [address] * Differential, auto (07/22/2024 8:32 AM [employer]ER SPONGE HOOKING) Neutrophil abs 4.0 1.5 - 6.5 K/cumm Imm gran abs 0.0 0.0 - 0.1 K/cumm [facility] Lymphocyte abs 1.8 0.8 - 3.3 K/cumm [facility] Monocyte abs 0.6 0.2 - 0.8 K/cumm [facility] Eosinophil abs 0.1 0.0 - 0.5 K/cumm [facility] Basophil abs 0.0 0.0 - 0.1 K/cumm [facility] Neutrophil pct 61.8 % [facility] Comment: Interpretive Data Percent cell count reference ranges are not reported, since discordance with absolute values may lead to misinterpretation of CBC data. Current Interpretive Data was last revised on 2017. Imm gran pct 0.2 % [facility] Comment: Interpretive Data Percent cell count reference ranges are not reported, since discordance with absolute values may lead to misinterpretation of CBC data. Current Interpretive Data was last revised on 2017. Lymphocyte pct 27.9 % [facility] Comment: Interpretive Data Percent cell count reference ranges are not reported, since discordance with absolute values may lead to misinterpretation of CBC data. Current Interpretive Data was last revised on 2017. Monocyte pct 8.6 % [facility] Comment: Interpretive Data Percent cell count reference ranges are not reported, since discordance with absolute values may lead to misinterpretation of CBC data. Current Interpretive Data was last revised on 2017. Eosinophil pct 0.9 % [facility] Comment: Interpretive Data Percent cell count reference ranges are not reported, since discordance with absolute values may lead to misinterpretation of CBC data. Current Interpretive Data was last revised on 2017. Basophil pct 0.6 % [facility] Comment: Interpretive Data Percent cell count reference ranges are not reported, since discordance with absolute values may lead to misinterpretation of CBC data. Current Interpretive Data was last revised on 2017. Blood 07/22/2024 8:32 AM [employer] SPONGE HOOKING 07/22/2024 4:46 PM [employer] SPONGE HOOKING Mary London LAB BLOOD ORDERABLES Final Resul t Performing Organization Address [facility] Co de Phone Number [facility] [address] [place] [address] * Thyroid Function Brooke (07/22/2024 8:32 AM [employer] SPONGE HOOKING) Pathologist [facility] TSH 2.12 0.30 - 4.20 mcIUnit/mL Blood 07/22/2024 8:32 AM [employer] SPONGE HOOKING 07/22/2024 4:46 PM [employer] SPONGE HOOKING Mary London LAB BLOOD ORDERABLES Final Resul t Performing Organization Address [facility] Co de Phone Number [facility] [address] Department [place] [address] * (ABNORMAL) CBC with auto differential (07/22/2024 8:32 AM [employer] SPONGE HOOKING) WBC 6.4 3.8 - 9.9 K/cumm Hgb 13.5 11.9 - 15.5 g/dL [facility] Hct 43.5 35.6 - 45.5 % [facility] Plt 244 150 - 400 K/cumm [facility] MPV 11.9 9.1 - 12.3 fL [facility] RBC 4.49 3.90 - 5.20 M/cumm [facility] MCV 96.9(H) 81.3 - 96.4 fL [facility] MCH 30.1 27.1 - 33.3 pg [facility] MCHC 31.0(L) 32.3 - 35.7 g/dL [facility] RDW CV 12.9 11.1 - 14.9 % [facility] RDW SD 46.5 35.7 - 48.1 fL [facility] NRBC abs 0.00 0.00 - 0.01 K/cumm [facility] Blood 07/22/2024 8:32 AM [employer]ON[employer] HOOKING 07/22/2024 4:46 PM [employer] HOOKING Mary London NP LAB BLOOD ORDERABLES Final Resul t [facility] [address] Department [place] [address] * Comprehensive metabolic panel (07/22/2024 8:32 AM [employer]ONGE HOOKING) Sodium 140 135 - 145 mmol/L Potassium, pl 4.5 3.3 - 4.9 mmol/L [facility] Chloride 105 97 - 110 mmol/L [facility] CO2 24 22 - 32 mmol/L [facility] Anion gap 11 2 - 15 mmol/L [facility] BUN 10 6 - 25 mg/dL [facility] Creatinine 0.70 0.60 - 1.10 mg/dL [facility] Glucose 86 70 - 199 mg/dL [facility] Comment: Interpretive Data Fasting glucose >/= 126 [...] classification and Diagnosis of Diabetes Diabetes Care 202; 46: S19-S40. Current interpretive data was last [...] Units/L [facility] Blood 07/22/2024 8:32 AM [employer] SPONGE HOOKING 07/22/2024 4:46 PM [employer] SPONGE HOOKING Mary London NP LAB BLOOD ORDERABLES Final Resul t [facility] [address] Department [place] [address] * Pap, reflex HPV (11/20/2023 3:25 PM CDT) CLINICAL INFORMATION: Rain De La Cruz Comment:None given LMP Rain De La Cruz Comment:[id number] Previous Pap Rain De La Cruz Comment:None given Prev. Bx Rain De La Cruz Comment:None given SOURCE: Rain De La Cruz Comment:Cervix, Endocervix Pap, specimen adequacy Rain De La Cruz Comment: Satisfactory for evaluation. Endocervical/transformation zone component present. HPV interp Rain De La Cruz Comment: Cytology Results: Negative for intraepithelial lesion or malignancy. COMMENTS Rain De La Cruz Comment: This Pap test has been evaluated with computer assisted technology. Quality Improvement Consultant Pablo Weiss Comment: CAK, CT(ASCP) CT Screening Location: [place] [address] , [place] [address] Comment Rain De La Cruz Comment: EXPLANATORY NOTE: The [...] NP LAB CYTOLOGY ORDERABLES Final Re sult [facility] [address] [place] [address] from Last 3 Months or Most Recently Relevant to Health Maintenance Insurance [facility] Care Teams Environmental Health Officer Relationship Specialty Start Date End Date Mary London NP PCP - General Family Medicine 08/22/23
--- OUTSIDE RECORDS SUMMARY | 2024-08-06 16:46 | XMS_ITS | Encounter Summary ---
Author Organization [facility] Healthcare Address [address] [place] [address] Care Team Providers Care Oyster Bed Worker Name Role Phone Mary London PRESS LEADER Primary Care Provider [phone] Reason for Visit * Reason Onset Date Comments abdomen pain 08/06/2024 Encounter Details Date Type Department Care Team (Late st Contact Info) Description 08/06/2024 Nurse Triage [facility] Primary Care at [address] [address] Mary London NP [address] [place] [address] [address] [place] [address] Social History Tobacco Use Types Packs/Day Years Used Date Smoking Tobacco: Never Smokeless Tobacco: Never Alcohol Use Standard Drinks/Week Comments Not Currently [...] CDT Gender Identity Female 08/29/2023 11:43 PM RAILROAD WHEELS AND AXLES INSPECTOR Sexual Orientation Not on file documented as of this encounter Miscellaneous Notes * Telephone Encounter - Dasia Roberson RN - 08/06/2024 9:55 AM CST Constant lower mid abdomen pain rates /10. Increased pain when urinating. Low grade temp yesterday-none today. Onset 08/05/24 Feels similar to when she had a cyst rupture 1 y/o (however she is not vomiting like she did then) No SOB. No chest pian. No abdomen distention. No cloudiness, odor, blood or frequency of urine. No nausea or vomiting. No bowel changes. Provider contacted via secure chat for ED/office disposition consult. Recommendation from provider:Proceed to ED per Deandre PRESS LEADER-Pt understands, inquires about cost ofED- explained that ED can give some payment options or spend down costing-Pt understood and agreed. Reason for Disposition ? ? MILD TO MODERATE constant pain lasting > 2 hours Protocols used: Abdominal Pain - [id number] ROAD WHEELS AND AXLES INSPECTOR * Telephone Encounter - Dasia Roberson RN - 08/06/2024 9:35 AM CST Regarding: severe lower abdominal pain ----- Message from Amanda Lozano sent at 08/06/2024 9:32 AM RAILROAD WHEELS AND AXLES INSPECTOR ----- Symptom Based Call Chief Complaint(s): severe lower abdominal pain Duration: started yesterday What type of symptom(s) is the patient experiencing? Red Flag. Is the patient concerned they are experiencing a medical emergency requiring an ambulance? No Additional Comments: Patient unable to sleep last night due to pain. She is concerned about a possible uterine cyst rupture Does message need to be routed? Yes-Action Needed ROAD WHEELS AND AXLES INSPECTOR documented in this encounter Plan of Treatment Not on file documented as of this encounter Visit Diagnoses Not on filedocumented in this encounter Care Teams Oyster Bed Worker Relationship Specialty Start Date End Date Mary London NP PCP - General Family Medicine 08/22/23 documented as of this encounter
== END 2024-08-06 17:17 | disposition home or self-care (01) ==
PROVIDERS: Physician Assistant; Emergency Provider Emergency Medicine; PCP Nurse Practitioner Family
DX: R10.30 Lower abdominal pain, unspecified (principal)
CPT/HCPCS: 36415; 76830; 76856; 80053; 81001; 81025; 83690; 85025; 99284